=== PATIENT | female | born 1985 ===

== ENCOUNTER 2019-05-11 08:17 | Outpatient (CLI) | payer OTHER ==
[~2019-05-11] VITALS: Ht 165.1 cm; Wt 131.5 kg
== END 2019-05-11 08:35 | disposition home or self-care (01) ==
LOC: OFIC 805 08:17
DX: J03.81 Acute recurrent tonsillitis due to other specified organisms (principal); G47.33 Obstructive sleep apnea (adult) (pediatric); J35.1 Hypertrophy of tonsils

== ENCOUNTER 2019-08-16 07:09 | Outpatient (CLI) | payer OTHER ==
[~2019-08-16] VITALS: Ht 152.4 cm; Wt 130.2 kg
== END 2019-08-16 07:46 | disposition home or self-care (01) ==
LOC: OFIC 805 07:09
DX: G47.33 Obstructive sleep apnea (adult) (pediatric) (principal); J35.1 Hypertrophy of tonsils; J03.81 Acute recurrent tonsillitis due to other specified organisms; E66.01 Morbid (severe) obesity due to excess calories; Z68.43 Body mass index [BMI] 50.0-59.9, adult